=== PATIENT | male | born 1940 | race Caucasian/White ===

== ENCOUNTER 2017-11-11 11:35 | Emergency (ER) | payer SELFPAY ==
[2017-11-11 11:40] VITALS: BMI 30.1
[2017-11-11 11:43] VITALS: RESP 18; O2SAT 98
[2017-11-11 12:12] LABS: BASO # 0.03 K/mm3 (0.0-2.0); BASO % 0.4 % (0.0-3.0); EOS # 0.3 (0.0-0.7); EOS % 4.2 % (1.5-5.0); GRAN # 3.72 (1.4-6.5); GRAN % 53.6 % (50.0-68.0); HEMOGLOBIN 13.6 g/dL (14.0-18.0); LYMPH # 2.3 (1.2-3.4); LYMPH % 33.7 % (22.0-35.0); MEAN CELL VOLUME 92.3 fl (80.0-105.0); MEAN CORPUSCULAR HEMOGLOBIN 31.9 pg (25.0-35.0); MEAN CORPUSCULAR HGB CONC 34.6 g/dl (31.0-37.0); MEAN PLATELET VOLUME 10.2 fl (7.0-11.0); MONO # 0.6 (0.1-0.6); MONO % 8.1 % (1.0-6.0); RBC 4.26 10^6/uL (3.5-6.1); RED CELL DISTRIBUTION WIDTH 13.4 % (11.5-14.5); WHITE BLOOD COUNT 6.9 10^3/ul (4.5-11.0)
[2017-11-11 12:27] LABS: ALB/GLOB RATIO 1.4 (1.1-1.8); ALBUMIN 4.3 g/dL (3.0-4.8); CALCIUM 8.5 mg/dL (8.4-10.5)
[2017-11-11] MEDS ORDERED: Sod Polystyrene Sulf 15 gm/60 ml Susp PO STA (13:03)
[2017-11-11 13:50] VITALS: BP 119/73; PULSE 72; TEMP 98.4
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
--- NOTE | 2017-11-12 09:21 | CARD ---
APPROVED REPORT EKG Measurement Heart [id number] <Conclusion> Normal sinus rhythm with sinus arrhythmia Normal ECG
== END 2017-11-11 13:51 | disposition home or self-care (01) ==
LOC: ED 11:35
DX: E87.5 Hyperkalemia (principal); I20.9 Angina pectoris, unspecified; I10 Essential (primary) hypertension; Z87.891 Personal history of nicotine dependence